=== PATIENT | female | born 1985 | race Two or more races ===

== ENCOUNTER 2024-06-20 06:16 | Day surgery (SDC) | payer OTHER, SELFPAY ==
[2024-06-16 09:00] LABS: Hematocrit 34.7 % (37.0-47.0); Hemoglobin 10.7 g/dL (12.0-16.0); Mean Corp Hgb Conc. 30.8 g/dL (33.0-37.0); Mean Corpuscular Hgb 24.4 pg (27.0-31.0); Mean Corpuscular Volume 79.2 fL (81.0-99.0); Mean Platelet Volume 9.5 fL (7.4-10.4); Platelet Count 317 10^3/uL (130-400); Red Blood Cell Count 4.38 10^6/uL (4.20-5.40); Red Cell Dist. Width 14.1 % (11.5-14.5); White Blood Cell Count 4.3 10^3/uL (4.8-10.8)
[2024-06-16 09:11] LABS: INR 1.01; PT 13.6 Sec (11.4-14.6)
[2024-06-16 09:12] LABS: APTT 28.9 Sec (23.4-35.0)
[2024-06-16 09:40] LABS: ALT (SGPT) 21 U/L (0-35); AST (SGOT) 24 U/L (14-36); Albumin 4.5 g/dl (3.5-5.0); Alkaline Phosphatase 68 U/L (38-126); Blood Urea Nitrogen 14 mg/dl (7-17); Calcium 10.8 mg/dl (8.4-10.2); Carbon Dioxide 30 mmol/L (22-30); Chloride 101 mmol/L (98-107); Glucose 91 mg/dl (70-99); Potassium 4.7 mmol/L (3.5-5.1); Sodium 139 mmol/L (135-145); Total Bilirubin 0.1 mg/dl (0.2-1.3); Total Protein 7.7 g/dl (6.3-8.2); eGFR > 60.00
[2024-06-16 13:46] VITALS: BMI 21.0
[2024-06-20] VITALS (9 sets, daily range): BP systolic 100–118; BP diastolic 57–81; BMI 21.0
[2024-06-20] MEDS: HEPARIN 5000 UNITS SC (08:53)
[2024-06-20] MEDS: TYLENOL 1000 MG PO (08:54)
[2024-06-20] MEDS: NEURONTIN 300 MG PO (08:54)
[2024-06-20] MEDS: NORMOSOL-R/PLASMALYTE-A 1000 IV (09:06)
[2024-06-20 11:04] LABS: Turbo PTH 162.2 pg/ml (13.6-85.8)
--- NOTE | 2024-06-20 12:13 | OR.RPT ---
Operative Report
Operative Report
Date of Operation: June 20, 2024
Preoperative Diagnosis: �Parathyroid hyperparathyroidism - E210
Postoperative Diagnosis: Same
Surgeon: Emanuel Rogers M.D.
Operation: Minimally Invasive Right Inferior Parathyroidectomy - 59208
Anesthesia: GET
Estimated Blood Loss: 3 cc
Drains: None
Specimen: �Right lower neck nodule, rule out parathyroid adenoma
Complications: �None
Findings: Intrathyroidal right inferior parathyroid adenoma
Procedure:
The patient was taken to the operating room and placed in the usual supine position. After adequate general endotracheal anesthesia was established, the patient's neck was extended, prepped, and draped in the typical sterile fashion. A 4 cm
transcervical incision was made two fingerbreadths above the sternal notch. The skin incision was made with the #15 blade, and this was taken through the skin into the subcutaneous tissue. The underlying platysma muscle was divided, and subplatysmal
flaps were created superiorly to the thyroid cartilage and inferiorly to the sternal notch. Strap muscles were identified and at the midline.
Attention was turned to the patient's right side of the neck. The right thyroid lobe was mobilized medially. During this process, the right recurrent laryngeal nerve was identified and preserved throughout the surgery. The normal-appearing right
superior parathyroid gland was identified and preserved. There was no obvious right inferior parathyroid gland. The superior horn of the thymus was pulled out of the mediastinum and resected, but there was no obvious parathyroid glad in the
specimen. The right thyroid lobe examined and noted to have a bulge in the inferior pole. The thyroid tissue was divided in this area and noted an enlarged parathyroid gland within the thyroid, which was excised, and sent to the pathology
department, which showed a hypercellular parathyroid gland weighing 383 mg. The intraoperative PTH levels normalized.
After obtaining adequate hemostasis, the strap muscles were reapproximated with #3-0 Vicryl in a running fashion. The platysma muscle was reapproximated with #3-0 Vicryl in an interrupted fashion, and the skin was approximated with #4-0 Monocryl in
a running subcuticular fashion. The Steri-Strips and sterile dressings were placed. The patient tolerated the procedure well. The final instrument, needle, and sponge counts were correct. The patient was extubated and transferred to the PACU.
[2024-06-20 12:28] LABS: Turbo PTH 19.1 pg/ml (13.6-85.8)
== END 2024-06-20 14:19 | disposition home or self-care (01) ==
LOC: SDS 06:16
PROVIDERS: ATTENDING PHYSICIAN Surgery; FAMILY PHYSICIAN Family Medicine
DX: E21.0 Primary hyperparathyroidism (principal)
CPT/HCPCS: 60500; 88305; 88332; 36415; 80053; 83970; 85027; 85610; 85730; 88331; 93005; C1776